=== PATIENT | male | born 1990 | race Caucasian/White ===

== ENCOUNTER 2018-02-10 12:31 | Emergency (ER) | payer OTHER ==
[~2018-02-10] VITALS: Ht 175.3 cm; Wt 68.0 kg
[2018-02-10 12:50] VITALS: BP 125/77
[2018-02-10] MEDS ORDERED: FLUTICASONE PRO16 G1 NASAL (13:04)
[2018-02-10] MEDS ORDERED: VIBRAMYCIN100 MG ORAL (13:04)
--- NOTE | 2018-02-10 13:04 | Emergency Room Report ---
History of Present Illness General Chief Complaint: Sore Throat Source: Significant Other Present Illness HPI 27-year-old male patient presents the ER complaining of sore throat and sinus congestion for the past 11 days. Reports has been taking [id number] medication including Sudafed without relief of symptoms. Denies fever, chest pain, shortness of breath. Reports pain with swallowing. Denies difficulty breathing. Denies vomiting, diarrhea. Denies headache. Denies neck pain or recent travel. Reports congestion and rhinorrhea during this time. Allergies: Coded Allergies: PENICILLINS (Verified Allergy, Severe, Rash, 02/10/18) Patient History Past Medical History: see triage record Reviewed Nursing Documentation: PMH: Agreed; PSxH: Agreed Nursing Documentation-PMH Past Medical History: No Stated History Review of Systems All Other Systems: negative except mentioned in HPI Physical Exam Vital Signs Date Time Temp Pulse Resp B/P (MAP) Pulse Ox O2 Delivery O2 Flow Rate FiO2 02/10/18 12:40 97.9 74 18 125/77 98 Room Air Sp02 EP Interpretation: reviewed, normal General Appearance: well appearing, no apparent distress, alert, GCS 15, non- toxic Head: normocephalic, atraumatic, other - Frontal and maxillary sinuses tender to palpation bilaterally Eyes: bilateral eye normal inspection, bilateral eye PERRL ENT: hearing grossly normal, normal pharynx, no angioedema, normal voice, uvula midline, moist mucus membranes Neck: full range of motion Respiratory: lungs clear, normal breath sounds, no rhonchi, no respiratory distress, no accessory muscle use, no wheezing, speaking full sentences Cardiovascular #1: regular rate, rhythm, no edema Genitourinary: no CVA tenderness Musculoskeletal: back normal, digits/nails normal, gait/station normal, normal range of motion, non-tender Neurologic: alert, oriented x3, responsive, motor strength/tone normal, sensory intact Skin: no rash Lymphatic: adenopathy - Cervical Medical Decision Making PA Attestation Dr. Lemos is my supervising Physician whom patient management has been discussed with. Diagnostic Impression: Primary Impression: Sinusitis Additional Impression: Sore throat ER Course Pt presents to ED c/o sore throat and sinus pain. DDX considered but are not limited to s influenza, viral URI, pneumonia, strep throat, rhinitis, sinusitis, otitis media. VITAL SIGNS are WNL, patient is afebrile. ER COURSE: Physical exam shows frontal and maxillary sinus tender to palpation, due to chronicity of symptoms, will provide patient with antibiotics for sinusitis to cover for bacterial infection. Oropharynx clear, no tonsillar exudates, uvula midline, no trismus, no stridor, low suspicion for tonsillitis or peritonsillar abscess. Salt water gargles. ER precautions given. Advised on use of humidifier. Take Tylenol. Drink plenty fluids. DISCHARGE: At this time pt is stable for d/c to home. Patient reports being in no acute distress currently. Patient will be treated for probable sinus congestion and patient agrees with treatment plan. Patient to take medications as instructed Will provide with patient care instructions and any necessary prescriptions. Care plan and follow-up instructions provided. Patient instructed to follow-up with primary care provider in 3 - 5 days and discuss follow-up with dentist for any tooth pain. Patient questions asked and answered. ER precautions given. Patient instructed to return to ER immediately for any new or worsening of symptoms including but not limited to fever, facial weakness , difficulty speaking, difficulty breathing, difficulty swallowing. - Please note that this Emergency Department Report was dictated using [employer] technology software, occasionally this can lead to erroneous entry secondary to interpretation by the dictation equipment. Last Vital Signs Date Time Temp Pulse Resp B/P (MAP) Pulse Ox O2 Delivery O2 Flow Rate FiO2 02/10/18 12:40 97.9 74 18 125/77 98 Room Air Status: improved Disposition: HOME, SELF-CARE Condition: Stable Scripts Doxycycline Hyclate* (VIBRAMYCIN*) 100 Mg Capsule 100 MG ORAL EVERY 12 HOURS, #14 CAP 0 Refills Prov: Pavel Horn.Brett 02/10/18 Fluticasone Propionate* (FLUTICASONE PROPIONATE*) 16 Gm [place].susp 1 SPRAY NASAL TWICE A DAY, #16 GM Prov: Pavel Horn.Brett 02/10/18 Patient Instructions: Sinusitis, Adult, [id number], Sore Throat Additional Instructions: Followup with primary care provider in 3 -5 days. Discuss referral to ENT specialist. Salt water gargles Take Tylenol for pain and fever symptoms Drink plenty of water. Take medications as directed. Patient questions asked and answered. ER precautions given, patient instructed to return to ER immediately for any new or worsening of symptoms including but not limited to intractable vomiting, difficulty breathing, inability to eat. Pavel Horn Feb 10, 2018 13:04
[2018-02-10 13:10] VITALS: BP 128/80
== END 2018-02-10 14:00 | disposition home or self-care (01) ==
LOC: EMR 13:17
DX: J32.9 Chronic sinusitis, unspecified (principal); R07.0 Pain in throat; Z88.0 Allergy status to penicillin
CPT/HCPCS: 99283